=== PATIENT | male | born 1990 | race Caucasian/White ===

== ENCOUNTER 2018-02-08 10:16 | Inpatient (IN) | payer MEDICAID, OTHER ==
[~2018-02-08] VITALS: Ht 177.8 cm; Wt 107.8 kg
[2018-02-08] MEDS ORDERED: AMLO2.5T PO (10:28)
[2018-02-08] MEDS ORDERED: OLAN2.5T3 PO (10:28)
[2018-02-08] MEDS ORDERED: ARIP2 PO (10:28)
[2018-02-08] MEDS ORDERED: LORazepam 2 MG TABLET PO ONE (11:15)
[2018-02-08] MEDS ORDERED: HALOPERIDOL 5 MG TABLET PO ONE (11:15)
[2018-02-08 11:22] LABS: BASOPHILS % (AUTO) 0.6 % (0.0-2.0); EOSINOPHILS % (AUTO) 2.1 % (1.0-6.0); HEMOGLOBIN 14.3 g/dL (13.5-17.5); LYMPHOCYTES # (AUTO) 2.5 K/uL (1.0-4.8); LYMPHOCYTES % (AUTO) 28.1 % (22.0-44.0); MEAN CORPUSCULAR HEMOGLOBIN 30.8 pg (26.0-34.0); MEAN CORPUSCULAR VOLUME 91 fL (80-100); MONOCYTES # (AUTO) 0.9 K/uL (0.1-1.0); MONOCYTES % (AUTO) 9.4 % (2.0-9.0); NEUTROPHILS # (AUTO) 5.4 K/uL (1.8-7.7); NEUTROPHILS % (AUTO) 59.8 % (40.0-70.0); PLATELET COUNT (AUTO) 223 K/uL (150-450); RED BLOOD CELL COUNT(AUTO) 4.63 MIL/uL (4.50-5.90); RED CELL DISTRIBUTION WIDTH 13.5 % (11.5-14.5)
[2018-02-08 11:43] LABS: ANION GAP 9 mmol/L (8-16); CALCIUM, TOTAL 9.2 mg/dL (8.8-10.5); CARBON DIOXIDE 27 mmol/L (22-29); CHLORIDE 99 mmol/L (98-107); CREATININE 0.97 mg/dL (0.60-1.30); GLOMERULAR FILTR. RATE CALC > 60 mL/min (>60); GLUCOSE,RANDOM 80 mg/dL (70-110); POTASSIUM 3.5 mmol/L (3.5-5.1); SODIUM SERUM 135 mmol/L (136-145); UREA NITROGEN, BLOOD 11 mg/dL (7-18)
[2018-02-08 11:49] LABS: ALANINE AMINOTRANSFERASE 145 U/L (12-78); ALBUMIN 4.5 g/dL (3.4-5.0); ALKALINE PHOSPHATASE 81 U/L (46-116); ASPARTATE AMINOTRANSFERASE 237 U/L (15-37); BILIRUBIN,TOTAL 1.2 mg/dL (0.1-1.0); TOTAL PROTEIN, SERUM 8.2 g/dL (6.4-8.2)
[2018-02-08] MEDS ORDERED: ZOLPIDEM TARTRATE 10 MG TABLET PO PRN (14:00)
[2018-02-08] MEDS ORDERED: TUBERCULIN, PURIFIED PROTEIN DERIVATIVE 5 TU/0.1 ML SYG ID ONE (14:00)
[2018-02-08] MEDS ORDERED: MAG HYDROX/AL HYDROX/SIMETH ES 30 ML SUSPENSION UDCUP PO PRN (14:00)
[2018-02-08] MEDS ORDERED: LOPERAMIDE HCL 2 MG CAPSULE PO PRN (14:00)
[2018-02-08] MEDS ORDERED: ACETAMINOPHEN 325 MG TABLET PO PRN (14:00)
[2018-02-08] MEDS ORDERED: MAGNESIUM HYDROXIDE SUSPENSION 30 ML UDCUP PO PRN (14:00)
[2018-02-08] MEDS ORDERED: PROMETHAZINE HCL 25 MG TABLET PO PRN (14:00)
[2018-02-08] MEDS ORDERED: GuaiFENesin/D-METHORPHAN [SUGAR-FREE] 200-20MG/10 ML SYRUP UDCUP PO PRN (14:00)
[2018-02-08] MEDS: LORazepam 2 MG TABLET PO PRN (16:05)
[2018-02-08] MEDS: OLANZapine 5 MG RAPDIS TABLET PO PRN (16:06)
[2018-02-08 16:17] LABS: AMPHET/METH SCREEN,URINE NEGATIVE (NEGATIVE); BARBITURATE SCREEN, URINE NEGATIVE (NEGATIVE); BENZODIAZEPINES SCREEN,URINE NEGATIVE (NEGATIVE); CANNABINOID SCREEN,URINE POSITIVE (NEGATIVE); COCAINE SCREEN,URINE NEGATIVE (NEGATIVE); METHADONE SCREEN, URINE NEGATIVE (NEGATIVE); OPIATE SCREEN,URINE NEGATIVE (NEGATIVE)
[2018-02-08 16:18] LABS: PHENCYCLIDINE SCREEN,URINE NEGATIVE (NEGATIVE)
[2018-02-08] MEDS: THIAMINE HCL 100 MG TABLET PO SCH (22:37)
[2018-02-09] MEDS: LORazepam 2 MG TABLET PO PRN ×3 (00:11→16:17)
[2018-02-09 00:32] VITALS: BP 155/86
[2018-02-09 00:42] VITALS: BP 155/86
[2018-02-09] MEDS ORDERED: PNEUMOCOCCAL VACCINE POLYVALENT 0.5 ML VIAL [PPSV23] IM ONE (00:45)
[2018-02-09 07:58] LABS: BASOPHILS % (AUTO) 0.7 % (0.0-2.0); EOSINOPHILS % (AUTO) 6.9 % (1.0-6.0); HEMATOCRIT 40.2 % (41-53); HEMOGLOBIN 13.9 g/dL (13.5-17.5); MEAN CORPUSCULAR HEMOGLOBIN 31.3 pg (26.0-34.0); MEAN CORPUSCULAR HGB CONC 34.6 G/dL (31.0-37.0); MEAN CORPUSCULAR VOLUME 90 fL (80-100); MONOCYTES # (AUTO) 0.6 K/uL (0.1-1.0); MONOCYTES % (AUTO) 7.9 % (2.0-9.0); NEUTROPHILS # (AUTO) 4.1 K/uL (1.8-7.7); NEUTROPHILS % (AUTO) 56.5 % (40.0-70.0); PLATELET COUNT (AUTO) 204 K/uL (150-450); RED BLOOD CELL COUNT(AUTO) 4.45 MIL/uL (4.50-5.90); RED CELL DISTRIBUTION WIDTH 13.6 % (11.5-14.5)
[2018-02-09 08:15] VITALS: BP 140/82
[2018-02-09 08:26] LABS: ALANINE AMINOTRANSFERASE 108 U/L (12-78); ALBUMIN 3.8 g/dL (3.4-5.0); ALKALINE PHOSPHATASE 78 U/L (46-116); ANION GAP 8 mmol/L (8-16); ASPARTATE AMINOTRANSFERASE 118 U/L (15-37); BILIRUBIN,TOTAL 0.6 mg/dL (0.1-1.0); CALCIUM, TOTAL 8.9 mg/dL (8.8-10.5); CARBON DIOXIDE 29 mmol/L (22-29); CHLORIDE 100 mmol/L (98-107); CHOL/HDL RATIO 3.1 (4.2-7.3); CHOLESTEROL 153 mg/dL (131-200); CREATININE 0.82 mg/dL (0.60-1.30); FREE T4 (FREE THYROXINE) 1.12 ng/dL (0.76-1.46); GLOMERULAR FILTR. RATE CALC > 60 mL/min (>60); GLUCOSE,RANDOM 99 mg/dL (70-110); HDL CHOLESTEROL 50 mg/dL (40-60); LDL CHOL (CALC.) 88 mg/dL (0-130); POTASSIUM 3.5 mmol/L (3.5-5.1); SODIUM SERUM 137 mmol/L (136-145); THYROID STIMULATING HORMONE 1.31 uIU/mL (0.36-3.74); TOTAL PROTEIN, SERUM 7.2 g/dL (6.4-8.2); TRIGLYCERIDES 75 mg/dL (15-150); UREA NITROGEN, BLOOD 11 mg/dL (7-18)
[2018-02-09] MEDS: THIAMINE HCL 100 MG TABLET PO SCH ×2 (08:36→16:17)
[2018-02-09] MEDS: FOLIC ACID 1 MG TABLET PO SCH (08:36)
[2018-02-09] MEDS: MULTIVITAMINS WITH MINERALS, THERAPEUTIC TABLET PO SCH (08:36)
[2018-02-09 09:32] LABS: HEMOGLOBIN A1C 4.6 % (4.5-6.2)
[2018-02-09 16:19] VITALS: BP 148/89
[2018-02-09] MEDS: OLANZapine 5 MG RAPDIS TABLET PO SCH (20:33)
[2018-02-10] MEDS: LORazepam 2 MG TABLET PO PRN ×4 (00:14→16:35)
[2018-02-10 00:15] VITALS: BP 139/93
[2018-02-10 08:34] VITALS: BP 151/89
[2018-02-10] MEDS: HydrOXYzine PAMOATE 50 MG CAPSULE PO PRN ×3 (08:34→16:35)
[2018-02-10] MEDS: THIAMINE HCL 100 MG TABLET PO SCH ×2 (08:34→16:35)
[2018-02-10] MEDS: MULTIVITAMINS WITH MINERALS, THERAPEUTIC TABLET PO SCH (08:34)
[2018-02-10] MEDS: NALTREXONE HCL 50 MG TABLET PO SCH (08:34)
[2018-02-10] MEDS: FOLIC ACID 1 MG TABLET PO SCH (08:34)
[2018-02-10] MEDS: AmLODIPine BESYLATE 10 MG TABLET PO SCH (09:17)
[2018-02-10 10:33] VITALS: BP 150/86
[2018-02-10] MEDS ORDERED: NALT50TA PO (16:01)
[2018-02-10] MEDS ORDERED: OLAN5TAB30 PO (16:01)
[2018-02-10 16:03] VITALS: BP 149/89
[2018-02-10] MEDS: OLANZapine 5 MG RAPDIS TABLET PO SCH (20:25)
[2018-02-11 00:01] VITALS: BP 140/89
[2018-02-11] MEDS: OLANZapine 5 MG RAPDIS TABLET PO PRN (00:05)
[2018-02-11] MEDS: LORazepam 2 MG TABLET PO PRN (00:05)
[2018-02-11 08:02] VITALS: BP 148/79
[2018-02-11] MEDS ORDERED: AMLO-512 PO (08:07)
[2018-02-11] MEDS ORDERED: OLAN10TA3 PO (08:08)
[2018-02-11] MEDS ORDERED: NALT50TA6 PO (08:09)
[2018-02-11] MEDS: FOLIC ACID 1 MG TABLET PO SCH (08:45)
[2018-02-11] MEDS: NALTREXONE HCL 50 MG TABLET PO SCH (08:45)
[2018-02-11] MEDS: THIAMINE HCL 100 MG TABLET PO SCH (08:45)
[2018-02-11] MEDS: AmLODIPine BESYLATE 10 MG TABLET PO SCH (08:45)
[2018-02-11] MEDS: MULTIVITAMINS WITH MINERALS, THERAPEUTIC TABLET PO SCH (08:45)
[2018-02-11 10:49] LABS: ALANINE AMINOTRANSFERASE 84 U/L (12-78); ALBUMIN 4.1 g/dL (3.4-5.0); ALKALINE PHOSPHATASE 81 U/L (46-116); ANION GAP 11 mmol/L (8-16); ASPARTATE AMINOTRANSFERASE 49 U/L (15-37); BILIRUBIN,TOTAL 0.6 mg/dL (0.1-1.0); CALCIUM, TOTAL 9.7 mg/dL (8.8-10.5); CARBON DIOXIDE 27 mmol/L (22-29); CHLORIDE 100 mmol/L (98-107); CREATININE 0.97 mg/dL (0.60-1.30); GLOMERULAR FILTR. RATE CALC > 60 mL/min (>60); GLUCOSE,RANDOM 94 mg/dL (70-110); SODIUM SERUM 138 mmol/L (136-145); UREA NITROGEN, BLOOD 13 mg/dL (7-18)
[2018-02-11 16:46] VITALS: BP_SYST 139; BP_SYST 150; BP_DIAS 82; BP_DIAS 87
== END 2018-02-11 17:05 | disposition home or self-care (01) | DRG 750 ==
LOC: EDSEX 10:20 → EMS 10:20 → B3A 20:48
PROVIDERS: ADMIT Psychiatry & Neurology Psychiatry; ATTEND Psychiatry & Neurology Psychiatry
DX: F20.9 Schizophrenia, unspecified (principal); Z78.1 Physical restraint status; I10 Essential (primary) hypertension; Z91.19 Patient's noncompliance with other medical treatment and regimen; E66.9 Obesity, unspecified; F17.210 Nicotine dependence, cigarettes, uncomplicated; F12.90 Cannabis use, unspecified, uncomplicated; Z59.0 Homelessness; Z79.899 Other long term (current) drug therapy; Z91.018 Allergy to other foods; Z68.33 Body mass index [BMI] 33.0-33.9, adult
CPT/HCPCS: 80074; 83036; 84439; 84443; 86592; 99285; G0480